=== PATIENT | male | born 1930 | race Caucasian/White ===

== ENCOUNTER 2017-05-09 13:33 | Day surgery (SDC) | payer MEDICARE, BC ==
[2017-05-09] MEDS ORDERED: PANT40TA3 PO (14:43)
[2017-05-09] MEDS ORDERED: TOFR50TA PO (14:43)
[2017-05-09] MEDS ORDERED: FISH1000 PO (14:43)
[2017-05-09] MEDS ORDERED: DILT1TAB4 PO (14:43)
[2017-05-09] MEDS ORDERED: SERT-132 PO (14:43)
[2017-05-09] MEDS ORDERED: MULTTAB4 (14:43)
[2017-05-09] MEDS ORDERED: XARE20TA PO (14:43)
[2017-05-09] MEDS ORDERED: PREV4POW PO (14:43)
[2017-05-09] MEDS ORDERED: METO100T PO (14:43)
[2017-05-09] MEDS ORDERED: LACTATED RINGER'S 1000 ML IV PRN (15:15)
[2017-05-09] MEDS ORDERED: METOPROLOL TARTRATE 25 MG TAB PO PRN (15:15)
[2017-05-09] MEDS ORDERED: SODIUM CHLORID 0.9% 500 ML IV PRN (15:15)
[2017-05-09] MEDS ORDERED: INSULIN HUMAN REGULAR 1,000 UNITS/10 ML VIAL SQ PRN (15:15)
[2017-05-09] MEDS ORDERED: POVIDONE IODINE 5% (ANTISEPSIS KIT) 4 APPLICATIONS EACH NARE PRN (15:15)
[2017-05-09] MEDS ORDERED: CHLORHEXIDINE GLUCONATE 2 % 1 PACK (2 CLOTHS) TOPICAL PRN (15:15)
--- NOTE | 2017-05-10 17:57 | EKG ---
Date Performed: 05/09/2017 Time Performed: 14:00:56 PTAGE: 86 years EKG: Supraventricular tachycardia with premature ventricular Contractions. Right bundle branch b lock. Anterolateral ischemia. Abnormal ECG NO PREVIOUS TRACING DOCTOR: Mega Sutton Interpretating Date/Time 05/10/2017 17:56:41
--- NOTE | 2017-05-11 11:13 | MR ---
cc: TUTU REVELES DATE 05/09/2017 INDICATION Atrial flutter/fibrillation with rapid ventricular response. PROCEDURE PERFORMED AT DC cardioversion ANESTHESIA Sedation provided by anesthesia RESULTS After the patient was sedated by anesthesia, and a transesophageal echocardiogram showed no evidence of left atrial thrombus, a 50 joule shock was delivered and converted the patient into sinus rhythm. The patient stayed in sinus rhythm and was discharged home in stable condition. DIAGNOSIS Successful cardioversion of atrial flutter/atrial fibrillation. DISPOSITION Mr. Hensley will continue his current medical program. We will continue full anticoagulation. I will him see him back for followup in our office after discharge. MD WEN Villeda/WILIAM /4:22 PM /11:07 AM DEMETRI
--- NOTE | 2017-05-15 13:34 | CF ---
cc: TUTU REVELES INDICATIONS FOR PROCEDURE: Atrial flutter/fibrillation, evaluation for left atrial thrombus. PROCEDURE PREFORMED: Transesophageal echocardiogram. PROCEDURE: After the patient was sedated by anesthesia, transesophageal probe was placed without difficulty. Tomographic images were obtained. The left atrial appendage was visualized and there was no evidence of left atrial thrombus. Left ventricular function was decreased to a moderate degree with estimated ejection fraction of 40%. The aortic valve was mildly to moderately thickened, there was no evidence of aortic stenosis. There was evidence of trace aortic insufficiency. The mitral valve was mildly thickened, there was evidence of mitral annular calcification. There was evidence of mild mitral regurgitation. No evidence of mitral stenosis. There is evidence of mild tricuspid regurgitation. Bubble study was performed and there was no evidence of right to left shunt. The descending aorta had mild plaque. DIAGNOSIS: 1. No evidence of left atrial thrombus. 2. No evidence of patent foramen ovale. 3. Moderate left ventricular dysfunction. 4. Mild mitral regurgitation. 5. Trace aortic insufficiency. 6. Mild tricuspid regurgitation. IMPRESSION: No evidence of left atrial thrombus. MD WEN Villeda/gala /4:20 PM /2:37 PM DEMETRI
== END 2017-05-09 17:37 | disposition home or self-care (01) ==
LOC: HOR 13:33 → HDIC 13:35 → HOR 17:37
PROVIDERS: ATTEND Internal Medicine Interventional Cardiology
DX: I48.91 Unspecified atrial fibrillation (principal); I48.92 Unspecified atrial flutter; Z79.01 Long term (current) use of anticoagulants
CPT/HCPCS: 92960; 93005; 93312; 93320; 93325

== ENCOUNTER 2017-09-05 11:04 | Day surgery (SDC) | payer MEDICARE, BC ==
[~2017-09-05 11:04] MED LIST: DILT1TAB4 PO; FISH1000 PO; METO100T PO; MULTTAB4; PANT40TA3 PO; PREV4POW PO; SERT-132 PO; TOFR50TA PO; XARE20TA PO
[2017-09-05] MEDS ORDERED: INSULIN HUMAN REGULAR 1,000 UNITS/10 ML VIAL SQ PRN (12:30)
[2017-09-05] MEDS ORDERED: METOPROLOL TARTRATE 25 MG TAB PO PRN (12:30)
[2017-09-05] MEDS ORDERED: CHLORHEXIDINE GLUCONATE 2 % 1 PACK (2 CLOTHS) TOPICAL PRN (12:30)
[2017-09-05] MEDS ORDERED: POVIDONE IODINE 5% (ANTISEPSIS KIT) 4 APPLICATIONS EACH NARE PRN (12:30)
[2017-09-05] MEDS ORDERED: SODIUM CHLORID 0.9% 500 ML IV PRN (12:30)
[2017-09-05] MEDS ORDERED: DO NOT ADM ANY ANTICOAGULANT DRUGS PRN (12:30)
[2017-09-05] MEDS ORDERED: LACTATED RINGER'S 1000 ML IV PRN (12:30)
[2017-09-05] MEDS ORDERED: PROPOFOL 200 MG/20 ML AMP ONE ×2 (13:51)
[2017-09-05] MEDS ORDERED: ATOR10TA15 PO (14:02)
[2017-09-05] MEDS ORDERED: FURO40TA PO (14:02)
[2017-09-05] MEDS ORDERED: METF500T PO (14:02)
[2017-09-05] MEDS ORDERED: PLAV75TA29 PO (14:02)
[2017-09-05] MEDS ORDERED: CARV12.52 PO (14:02)
[2017-09-05] MEDS ORDERED: PREV4POW PO (14:02)
[2017-09-05] MEDS ORDERED: AMIO200T PO (14:02)
--- NOTE | 2017-09-06 06:41 | MR ---
cc: ROMINA LAMBERT DATE 09/05/2017 INDICATION Atrial flutter/fibrillation. PROCEDURE PERFORMED DC cardioversion. PROCEDURE After the patient was sedated by Anesthesia, 50 joule biphasic energy converted the patient into sinus rhythm. The patient remained stable and was discharged home in stable condition. DIAGNOSIS Successful cardioversion of atrial fibrillation. DISPOSITION 1. Mr. Hnesley will continue his current medical program including anticoagulation with Xarelto. 2. I will see him back in followup in our office after discharge. Romina Lambert MD OQ/SSB /3:15 PM /6:30 AM
--- NOTE | 2017-09-06 12:15 | EKG ---
Date Performed: 09/05/2017 Time Performed: 14:50:36 PTAGE: 86 years EKG: Sinus rhythm . 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
--- NOTE | 2017-09-06 14:04 | EKG ---
Date Performed: 09/05/2017 Time Performed: 11:33:02 PTAGE: 86 years EKG: Sinus tachycardia. 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 Th e PVCs have resolved. Clinical correlation will remain important. PREVIOUS TRACIN05/09/2017 14.00 DOCTOR: Sabrina Wick Interpretating Date/Time 09/06/2017 14:02:53
== END 2017-09-05 15:40 | disposition home or self-care (01) ==
LOC: HDOC 11:04 → HDIC 11:05 → HDOC 15:40
PROVIDERS: ATTEND Internal Medicine Interventional Cardiology
DX: I48.91 Unspecified atrial fibrillation (principal); I48.92 Unspecified atrial flutter; I47.1 Supraventricular tachycardia; I50.9 Heart failure, unspecified; I42.9 Cardiomyopathy, unspecified; I25.10 Atherosclerotic heart disease of native coronary artery without angina pectoris; I36.1 Nonrheumatic tricuspid (valve) insufficiency; I10 Essential (primary) hypertension; R55 Syncope and collapse; G47.30 Sleep apnea, unspecified; Z79.01 Long term (current) use of anticoagulants
CPT/HCPCS: 92960; 93005